=== PATIENT | male | born 1965 | race Caucasian/White ===

== ENCOUNTER 2020-10-26 14:45 | Inpatient (IN) | payer BC, OTHER ==
[2020-10-26 14:55] VITALS: BMI 43.4
[2020-10-26] MEDS ORDERED: LACTATED RINGERS SOLUTION 1000 ML INFUS.BAG IV ONE ×2 (16:18→16:27)
[2020-10-26] MEDS ORDERED: ONDANSETRON 4 MG/2 ML VIAL IVPUSH ONE (16:18)
[2020-10-26] MEDS ORDERED: FAMOTIDINE 20 MG/50 ML IVPB 20 MG/50 ML MG IVPB ONE ×2 (16:19→16:38)
[2020-10-26] MEDS ORDERED: ONDANSETRON 4 MG/2 ML VIAL ONE ×2 (16:38→23:48)
[2020-10-26 17:39] LABS: BASO % 0.4 % (0-2.0); EOS % 0.3 % (0-4.5); HEMATOCRIT 50.4 % (35.4-49); HEMOGLOBIN 17.2 GM/dL (11.7-16.9); LYMPH % 17.1 % (8-40); MCHC 34.1 g/dl (32.0-35.9); MEAN CELL VOLUME 93.9 fl (80-96); MEAN PLT VOLUME 8.5 fl (7.5-11.1); MONO % 9.5 % (3.8-10.2); NEUT % 72.7 % (42.8-82.8); PLATELET COUNT 302 K/MM3 (134-434); RBC 5.37 M/mm3 (4.00-5.60); RDW 14.3 % (11.9-15.9); WHITE BLOOD COUNT 13.1 K/mm3 (4.0-10.0)
[2020-10-26 17:40] LABS: INR 1.01 (0.83-1.09); PROTHROMBIN TIME (PATIENT) 12.4 SEC (9.7-13.0)
[2020-10-26 17:48] LABS: CHLORIDE 106 mmol/L (98-107); SODIUM 141 mmol/L (136-145)
[2020-10-26 17:50] LABS: CALCIUM 9.4 mg/dL (8.5-10.1)
[2020-10-26 17:51] LABS: ALBUMIN 3.7 g/dl (3.4-5.0); ANION GAP 3 MMOL/L (8-16); BLOOD UREA NITROGEN 15.6 mg/dL (7-18); CO2 32 mmol/L (21-32); GLUCOSE,RANDOM 114 mg/dL (74-106); LIPASE 72 U/L (73-393); MAGNESIUM 2.5 mg/dL (1.8-2.4)
[2020-10-26 17:54] LABS: SGOT/AST 48 U/L (15-37); SGPT/ALT 133 U/L (13-61)
[2020-10-26 17:56] LABS: BILIRUBIN,TOTAL 0.6 mg/dL (0.2-1); TOT PROT 7.4 g/dl (6.4-8.2)
[2020-10-26 17:57] LABS: ALK PHOS 71 U/L (45-117)
[2020-10-26] MEDS ORDERED: ACETAMINOPHEN 1000 MG/100 ML VIAL (NON FORMULARY) IVPB ONE (19:43)
[2020-10-26] MEDS ORDERED: ACETAMINOPHEN INJECTION 100 ML IVPB ONE (19:45)
[2020-10-26] MEDS ORDERED: LORazepam 2 MG/ML SDV VIAL IVPUSH ONE (21:47)
[2020-10-26] MEDS ORDERED: LORazepam 2 MG/ML SDV VIAL ONE (21:49)
[2020-10-26] MEDS ORDERED: ONDANSETRON 4 MG/2 ML VIAL IVPUSH PRN (23:25)
[2020-10-26] MEDS ORDERED: ENOXAPARIN NA (PORCINE) 40 MG/0.4 ML DISP.SYRIN SQ ONE (23:49)
[2020-10-26] MEDS: ENOXAPARIN NA (PORCINE) 40 MG/0.4 ML DISP.SYRIN SQ SCH (23:54)
[2020-10-27 00:01] LABS: PH,URINE 6.5 (5.0-8.0); URINE APPEARANCE CLEAR; URINE BILIRUBIN 1+ (NEGATIVE); URINE COLOR DK YELLOW; URINE GLUCOSE (UA) NEGATIVE (NEGATIVE); URINE KETONE NEGATIVE (NEGATIVE); URINE LEUK ESTERASE NEGATIVE (NEGATIVE); URINE NITRITE NEGATIVE (NEGATIVE); URINE PROTEIN NEGATIVE (NEGATIVE)
[2020-10-27] MEDS: SODIUM CHLORIDE 1,000 ML IV SCH ×2 (00:14→10:08)
[2020-10-27] MEDS ORDERED: LORazepam 2 MG/ML SDV VIAL IVPUSH ONE ×3 (01:11→20:31)
[2020-10-27] MEDS ORDERED: BENZOCAINE/MENTH/CETYLPYRD CL 1 EACH LOZENGE MM PRN (01:11)
[2020-10-27] MEDS ORDERED: PT OWN MED DRAWER 7, Y5N ONE (01:52)
[2020-10-27 07:51] LABS: INR 1.04 (0.83-1.09); PROTHROMBIN TIME (PATIENT) 12.8 SEC (9.7-13.0)
[2020-10-27 07:54] LABS: ACTIVATED PTT 32.3 SECONDS (25.2-36.5)
[2020-10-27 07:55] LABS: HEMATOCRIT 45.2 % (35.4-49); HEMOGLOBIN 15.7 GM/dL (11.7-16.9); MCH 32.5 pg (25.7-33.7); MCHC 34.8 g/dl (32.0-35.9); MEAN CELL VOLUME 93.6 fl (80-96); PLATELET COUNT 239 K/MM3 (134-434); RBC 4.83 M/mm3 (4.00-5.60); WHITE BLOOD COUNT 10.6 K/mm3 (4.0-10.0)
[2020-10-27 08:01] LABS: ALBUMIN 3.4 g/dl (3.4-5.0); BLOOD UREA NITROGEN 16.5 mg/dL (7-18)
[2020-10-27 08:04] LABS: CALCIUM 8.3 mg/dL (8.5-10.1); MAGNESIUM 2.3 mg/dL (1.8-2.4)
[2020-10-27 08:05] LABS: CREATININE 0.9 mg/dL (0.55-1.3)
[2020-10-27 08:07] LABS: BILIRUBIN,TOTAL 0.8 mg/dL (0.2-1); TOT PROT 6.4 g/dl (6.4-8.2)
[2020-10-27 08:08] LABS: PHOSPHOROUS 3.7 mg/dL (2.5-4.9)
[2020-10-27] MEDS: ENOXAPARIN NA (PORCINE) 40 MG/0.4 ML DISP.SYRIN SQ SCH ×2 (10:05→21:52)
[2020-10-27] MEDS ORDERED: DEXTROSE 5%-NORMAL SALINE 1,000 ML IV SCH (10:30)
[2020-10-27] MEDS ORDERED: DEXTROSE 5%-LACTATED RINGERS 1,000 ML IV SCH (12:00)
[2020-10-27 23:11] VITALS: BP 141/74; PULSE 91; TEMP 97.9
== END 2020-10-27 23:00 | disposition short-term general hospital (02) | DRG 394 ==
LOC: JER 14:45 → JERBED 22:12 → J8W 10-27 00:19
PROVIDERS: ADMIT Internal Medicine; ATTEND Internal Medicine
PROC: 0D9670Z Drainage of Stomach with Drainage Device, Via Natural or Artificial Opening (ICD-10-PCS; principal; 2020-10-26)
DX: K43.6 Other and unspecified ventral hernia with obstruction, without gangrene (principal); Z68.41 Body mass index [BMI] 40.0-44.9, adult; E66.01 Morbid (severe) obesity due to excess calories; I10 Essential (primary) hypertension; R74.01 Elevation of levels of liver transaminase levels; K76.0 Fatty (change of) liver, not elsewhere classified; D72.829 Elevated white blood cell count, unspecified; F41.8 Other specified anxiety disorders
CPT/HCPCS: 36415; 71045-TC-FY; 74177-TC; 80053; 81003; 82550; 83605; 83690; 83735; 84100; 84484; 85025; 85027; 85610; 85730; 87086; 93005; 93010; 99285-25; C9803; J0131; U0003; U0005

== ENCOUNTER 2023-09-19 14:22 | Emergency (ER) | payer BC, OTHER ==
[2023-09-19 14:34] VITALS: BP 154/82; PULSE 84; RESP 18; TEMP 98; BMI 33.5
== END 2023-09-19 16:28 | disposition home or self-care (01) ==
LOC: JERFT 14:22
DX: S50.12XA Contusion of left forearm, initial encounter (principal); W22.8XXA Striking against or struck by other objects, initial encounter
CPT/HCPCS: 93971; 99284-25